=== PATIENT | male | born 2000 | race Two or more races ===

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

== ENCOUNTER 2020-07-12 08:24 | Emergency (ER) | payer MEDICAID ==
[2020-07-12 08:30] VITALS: BP 152/83
== END 2020-07-12 11:30 | disposition left against medical advice (07) ==
LOC: ER 08:24
DX: Z53.21 Procedure and treatment not carried out due to patient leaving prior to being seen by health care provider (principal)